=== PATIENT | male | born 1995 | race Caucasian/White ===

== ENCOUNTER 2016-12-30 00:19 | Emergency (ER) | payer BC, OTHER ==
[2016-12-30 00:26] VITALS: TEMP 96.8
[2016-12-30] MEDS ORDERED: SODIUM CHLORIDE 0.9% 1,000 ML IV ONE (01:18)
[2016-12-30 01:27] LABS: Basophils # (A) 0.1 k/uL (0-0.2); Basophils % (A) 1 %; CHCM 33.8; Eosinophils % (A) 0 %; HCT 48.5 % (39.0-53.0); HDW 2.55; Luc # (Auto) 0.09; Luc % (Auto) 1; Lymphocytes # (A) 1.3 k/uL (1.0-4.8); Lymphocytes % (A) 8 %; MCH 29.4 pg (25.0-35.0); MCHC 32.9 g/dL (31.0-37.0); MCV 89.2 fL (80.0-100.0); Mean Platelet Volume 7.3; Monocytes # (A) 0.7 k/uL (0-1.0); Monocytes % (A) 4 %; Neutrophils # (A) 14.6 k/uL (1.3-7.7); Neutrophils % (A) 87 %; RBC 5.44 m/uL (4.30-5.90); RDW 13.4 % (11.5-15.5); WBC 16.8 k/uL (3.8-10.6); WBC (Perox) 16.38
[2016-12-30 01:36] LABS: ALT 41 U/L (21-72); AST 23 U/L (17-59); Alkaline Phosphatase 87 U/L (38-126); Anion Gap 11 mmol/L; Blood Urea Nitrogen 7 mg/dL (9-20); Calcium 9.9 mg/dL (8.4-10.2); Carbon Dioxide 23 mmol/L (22-30); Chloride 107 mmol/L (98-107); Glucose 122 mg/dL (74-99); Magnesium 1.8 mg/dL (1.6-2.3); Non-African American GFR(MDRD) >60 (>60 ml/min/1.73 sqM); Potassium 4.1 mmol/L (3.5-5.1); Sodium 141 mmol/L (137-145); Total Bilirubin 0.7 mg/dL (0.2-1.3); Total Protein 7.3 g/dL (6.3-8.2)
--- NOTE | 2016-12-30 01:39 | ED ---
Nausea/Vomiting/Diarrhea HPI - General Chief complaint: Nausea/Vomiting/Diarrhea Stated complaint: Dizziness/Vomiting Time Seen by Provider: 12/30/16 01:01 Source: patient, RN notes reviewed Mode of arrival: ambulatory Limitations: no limitations - History of Present Illness Initial comments: Patient is a 21-year-old male presents to the emergency room for evaluation of nausea, vomiting and diarrhea. Patient states symptoms began today. Patient states he feels very dizzy after vomiting. Patient denies abdominal pain. Patient denies chest pain or shortness of breath. Patient denies recent travel outside the country. Patient denies sick contacts. Patient denies trying new foods. Patient denies chest pain, shortness of breath. Patient just states he' s been feeling very nauseous and can't get the vomiting to stop. Patient denies any significant past mental history. Patient denies any history of abdominal surgeries. Patient states he's had diarrhea for the past 3 days. Patient denies blood in stools. Patient denies any abnormal discoloration of stools. - Related Data Previous Rx's Medication Instructions Recorded Ibuprofen [Motrin] 600 mg PO Q8HR PRN #20 tab 05/04/15 Ondansetron Odt [Zofran Odt] 4 mg PO Q8HR PRN #12 tab 12/30/16 Allergies Allergy/AdvReac Type Severity Reaction Status Date / Time No Known Allergies Allergy Verified 12/30/16 00:26 Review of Systems ROS Statement: Those systems with pertinent positive or pertinent negative responses have been documented in the HPI. ROS Other: All systems not noted in ROS Statement are negative. Past Medical History Past Medical History: No Reported History History of Any Multi-Drug Resistant Organisms: None Reported Past Surgical History: Orthopedic Surgery Past Psychological History: No Psychological Hx Reported Smoking Status: Current every day smoker Past Alcohol Use History: Rare Past Drug Use History: Marijuana General Exam - General Exam Comments Initial Comments: Sitting in exam room, no acute distress. Limitations: no limitations General appearance: alert, in no apparent distress Head exam: Present: atraumatic, normocephalic, normal inspection Eye exam: Present: normal appearance ENT exam: Present: normal exam Neck exam: Present: normal inspection Respiratory exam: Present: normal lung sounds bilaterally. Absent: respiratory distress Cardiovascular Exam: Present: regular rate, normal rhythm, normal heart sounds GI/Abdominal exam: Present: soft, normal bowel sounds. Absent: distended, tenderness, guarding, rebound, rigid Extremities exam: Present: normal inspection Back exam: Present: normal inspection Neurological exam: Present: alert, oriented X3, CN II-XII intact, normal gait Psychiatric exam: Present: normal affect, normal mood Skin exam: Present: warm, dry, intact, normal color. Absent: rash Course Vital Signs 12/30/16 00:24 Temperature 96.8 F L Pulse Rate 70 Respiratory 20 Rate Blood Pressure 139/77 O2 Sat by Pulse 98 Oximetry Medical Decision Making - Medical Decision Making Patient is a 21-year-old male presents emergency room for impression nausea, vomiting and diarrhea. Patient declined any nausea medication. Patient was given a liter of fluids. Patient states he is feeling much better and like to be discharged home. Will send patient home with Zofran as needed advised patient to drink plenty of fluids. Patient to follow-up with his primary care provider in 24-48 hours for reevaluation. Patient states he understands everything that was discussed with him. Return parameters discussed. Case discussed with Dr. Doherty. - Lab Data Result diagrams: 12/30/16 01:05 12/30/16 01:05 Lab Results 12/30/16 12/30/16 Range/Units 01:05 01:05 WBC 16.8 H (3.8-10.6) k/uL RBC 5.44 (4.30-5.90) m/uL Hgb 16.0 (13.0-17.5) gm/dL Hct 48.5 (39.0-53.0) % MCV 89.2 (80.0-100.0) fL MCH 29.4 (25.0-35.0) pg MCHC 32.9 (31.0-37.0) g/dL RDW 13.4 (11.5-15.5) % Plt Count 252 (150-450) k/uL Neutrophils % 87 % Lymphocytes % 8 % Monocytes % 4 % Eosinophils % 0 % Basophils % 1 % Neutrophils # 14.6 H (1.3-7.7) k/uL Lymphocytes # 1.3 (1.0-4.8) k/uL Monocytes # 0.7 (0-1.0) k/uL Eosinophils # 0.0 (0-0.7) k/uL Basophils # 0.1 (0-0.2) k/uL Sodium 141 (137-145) mmol/L Potassium 4.1 (3.5-5.1) mmol/L Chloride 107 (98-107) mmol/L Carbon Dioxide 23 (22-30) mmol/L Anion Gap 11 mmol/L BUN 7 L (9-20) mg/dL Creatinine 0.60 L (0.66-1.25) mg/dL Est GFR (MDRD) Af Amer >60 (>60 ml/min/1.73 sqM) Est GFR (MDRD) Non-Af >60 (>60 ml/min/1.73 sqM) Glucose 122 H (74-99) mg/dL Calcium 9.9 (8.4-10.2) mg/dL Magnesium 1.8 (1.6-2.3) mg/dL Total Bilirubin 0.7 (0.2-1.3) mg/dL AST 23 (17-59) U/L ALT 41 (21-72) U/L Alkaline Phosphatase 87 (38-126) U/L Total Protein 7.3 (6.3-8.2) g/dL Albumin 4.5 (3.5-5.0) g/dL Disposition Clinical Impression: Nausea vomiting and diarrhea Disposition: HOME SELF-CARE Condition: Good Instructions: Gastroenteritis (ED) Additional Instructions: Drink plenty of fluids. Take Zofran as needed for nausea. Clear liquid diet. Please follow up with primary care provider in 24-48 hours for reevaluation. If any new symptom arises or symptoms worsen, return to ER as soon as possible. Prescriptions: Ondansetron Odt [Zofran Odt] 4 mg PO Q8HR PRN #12 tab PRN Reason: Nausea Referrals: Connor Zheng MD [Primary Care Provider] - 1-2 days Time of Disposition: 02:30
[2016-12-30 02:47] VITALS: BP 111/53; PULSE 62; RESP 16
== END 2016-12-30 02:47 | disposition home or self-care (01) ==
LOC: EC 00:19
DX: R11.2 Nausea with vomiting, unspecified (principal); R19.7 Diarrhea, unspecified; R42 Dizziness and giddiness; F17.200 Nicotine dependence, unspecified, uncomplicated
CPT/HCPCS: 36415; 80053; 83735; 85025; 96360; 99283

== ENCOUNTER 2021-01-02 09:49 | Emergency (ER) | payer BC, OTHER ==
[2021-01-02 09:55] VITALS: PULSE 54
[2021-01-02 10:31] LABS: Basophils % (A) 0 %; Eosinophils % (A) 0 %; HCT 48.1 % (39.0-53.0); Lymphocytes # (A) 1.6 k/uL (1.0-4.8); Lymphocytes % (A) 13 %; MCH 29.3 pg (25.0-35.0); MCHC 33.2 g/dL (31.0-37.0); MCV 88.3 fL (80.0-100.0); Mean Platelet Volume 7.6; Monocytes # (A) 0.6 k/uL (0-1.0); Monocytes % (A) 5 %; Neutrophils # (A) 10.3 k/uL (1.3-7.7); Neutrophils % (A) 81 %; Platelet Count 259 k/uL (150-450); RBC 5.44 m/uL (4.30-5.90); RDW 12.8 % (11.5-15.5); WBC 12.7 k/uL (3.8-10.6)
[2021-01-02] MEDS ORDERED: ONDANSETRON 4 MG/2 ML VIAL IVP STA (10:42)
[2021-01-02] MEDS ORDERED: KETOROLAC 15 MG/ML 1 ML VIAL IVP STA (10:42)
[2021-01-02] MEDS ORDERED: SODIUM CHLORIDE 0.9% 1,000 ML IV ONE (10:43)
[2021-01-02 10:46] LABS: ALT 15 U/L (4-49); AST 20 U/L (17-59); African American GFR (CKD) >90 (>60 ml/min/1.73 sqM); Albumin 4.5 g/dL (3.5-5.0); Alkaline Phosphatase 102 U/L (38-126); Anion Gap 8 mmol/L; Blood Urea Nitrogen 12 mg/dL (9-20); Calcium 10.2 mg/dL (8.4-10.2); Carbon Dioxide 23 mmol/L (22-30); Chloride 108 mmol/L (98-107); Glucose 138 mg/dL (74-99); Lipase 63 U/L (23-300); Non-African American GFR(CKD) >90 (>60 ml/min/1.73 sqM); Potassium 4.1 mmol/L (3.5-5.1); Sodium 139 mmol/L (137-145); Total Bilirubin 0.5 mg/dL (0.2-1.3); Total Protein 7.3 g/dL (6.3-8.2)
--- NOTE | 2021-01-02 12:06 | CT ---
EXAMINATION TYPE: CT abdomen pelvis w con DATE OF EXAM: 01/02/2021 COMPARISON: None HISTORY: Right sided pain with nausea CT DLP: 1408.7 mGycm CONTRAST: CT scan of the abdomen and pelvis is performed without Oral Contrast and with IV Contrast, patient in jected with 100 mL of Isovue 300. FINDINGS: LUNG BASES-: Small pleural effusions left greater than right as well as nodular infiltrate right lowe r lobe linear atelectasis or parenchymal scar at the left lung base. LIVER/GB: No calcified gallstones. No space occupying hepatic lesion. Biliary tree is of normal ca liber. PANCREAS: No inflammation. No distinct mass. SPLEEN: No splenic enlargement. No lesion seen. ADRENALS: No nodule. No thickening. KIDNEYS/BLADDER: No hydronephrosis. No nephrolithiasis. There is a complex mass upper pole left kid breonna posterior cortex measuring 1.8 x 2.4 x 2.9 cm. Malignancy is not excluded. No additional renal le sions are detected. Urinary bladder grossly unremarkable. BOWEL: Normal appendix. Normal bowel caliber. No inflammation. GENITAL ORGANS: No gross abnormality. LYMPH NODES: No greater than 1cm abdominal or pelvic lymph nodes are appreciated. AORTA: No significant abnormality. OSSEOUS STRUCTURES: No significant abnormality is seen. OTHER: No significant additional abnormality is seen. IMPRESSION: 1. Urology consult recommended for complex mass upper pole left kidney. Malignancy is not excluded. 2. No acute intra-abdominal process seen. 3. Small pleural effusions as well as nodular infiltrate right lower lobe areas of linear atelectasis left lung base.
[2021-01-02 12:32] LABS: Appearance,Urine Clear (Clear); Bilirubin,Urine Negative (Negative); Blood,Urine Large (Negative); Color,Urine Light Yellow; Glucose,Urine (UA) Negative (Negative); Ketones,Urine Negative (Negative); Leukocyte Esterase,Urine Negative (Negative); Mucus,Urine Rare /hpf; Nitrite,Urine Negative (Negative); PH, Urine 7.5 (5.0-8.0); Protein,Urine Negative (Negative); RBC,Urine >182 /hpf (0-5); Urobilinogen,Urine <2.0 mg/dL (<2.0); WBC,Urine 2 /hpf (0-5)
[2021-01-02 12:33] LABS: Specific Gravity,Urine >1.050 (1.001-1.035)
--- NOTE | 2021-01-02 13:18 | ED ---
Abdominal Pain HPI - General Chief Complaint: Abdominal Pain Stated Complaint: Abd Pain, Vomiting Source: patient Mode of arrival: ambulatory Limitations: no limitations - History of Present Illness Initial Comments: 25-year-old male who presents emergency department with reported right-sided abdominal pain. Patient states that it started early this morning and awoke him from sleep. Pain starts around his right upper quadrant radiates around to his right back. It is tender to touch. Patient has associated nausea and vomiting. Denies dysuria, hematuria or difficulty voiding. Denies diarrhea, constipation, melenic stools or hematochezia. Denies any chest pain or short ness of breath. No history of similar in the past. No penile discharge. No concern for sexually transmitted infections. No scrotal pain. No previous history of abdominal surgeries. No other alleviating, precipitating or modifying factors - Related Data Home Medications Medication Instructions Recorded Confirmed No Known Home Medications 01/02/21 01/02/21 Allergies Allergy/AdvReac Type Severity Reaction Status Date / Time No Known Allergies Allergy Verified 01/02/21 10:26 Review of Systems ROS Statement: Those systems with pertinent positive or pertinent negative responses have been documented in the HPI. ROS Other: All systems not noted in ROS Statement are negative. Past Medical History Past Medical History: No Reported History History of Any Multi-Drug Resistant Organisms: None Reported Past Surgical History: Orthopedic Surgery Past Psychological History: No Psychological Hx Reported Smoking Status: Current every day smoker Past Alcohol Use History: Rare Past Drug Use History: Marijuana General Exam Limitations: no limitations Course Vital Signs 01/02/21 01/02/21 09:51 13:41 Temperature 97.6 F 98 F Pulse Rate 54 L 54 L Respiratory 18 16 Rate Blood Pressure 145/82 113/68 O2 Sat by Pulse 100 98 Oximetry - Reevaluation(s) Reevaluation #1: 01/02/21 13:[address] Neville. Patient admits to follow-up in the office. Medical Decision Making - Medical Decision Making Upon arrival patient's placed into room 15. Thorough history and physical exam was performed. he was established. Patient was given a dose of Toradol and Zofran for his pain and nausea. Laboratory studies were conducted. Urinalysis does demonstrate greater than [address] demonstrates complex mass upper pole left kidney. Spoke with Dr. Neville in guarded stiffness. States the patient can follow up in office. These results are discussed the patient and the importance of him following up in Dr. Dye's office. He does understand this. He is take Motrin and Tylenol alternating for his pain. Return to the emergency room for any worsening symptoms. Patient is discharged in stable condition. - Lab Data Result diagrams: 01/02/21 10:13 01/02/21 10:13 Lab Results 01/02/21 01/02/21 01/02/21 Range/Units 10:13 10:13 10:13 WBC 12.7 H (3.8-10.6) k/uL RBC 5.44 (4.30-5.90) m/uL Hgb 16.0 (13.0-17.5) gm/dL Hct 48.1 (39.0-53.0) % MCV 88.3 (80.0-100.0) fL MCH 29.3 (25.0-35.0) pg MCHC 33.2 (31.0-37.0) g/dL RDW 12.8 (11.5-15.5) % Plt Count 259 (150-450) k/uL MPV 7.6 Neutrophils % 81 % Lymphocytes % 13 % Monocytes % 5 % Eosinophils % 0 % Basophils % 0 % Neutrophils # 10.3 H (1.3-7.7) k/uL Lymphocytes # 1.6 (1.0-4.8) k/uL Monocytes # 0.6 (0-1.0) k/uL Eosinophils # 0.0 (0-0.7) k/uL Basophils # 0.0 (0-0.2) k/uL Sodium 139 (137-145) mmol/L Potassium 4.1 (3.5-5.1) mmol/L Chloride 108 H (98-107) mmol/L Carbon Dioxide 23 (22-30) mmol/L Anion Gap 8 mmol/L BUN 12 (9-20) mg/dL Creatinine 0.82 (0.66-1.25) mg/dL Est GFR (CKD-EPI)AfAm >90 (>60 ml/min/1.73 sqM) Est GFR (CKD-EPI)NonAf >90 (>60 ml/min/1.73 sqM) Glucose 138 H (74-99) mg/dL Plasma Lactic Acid Ari 1.6 (0.7-2.0) mmol/L Calcium 10.2 (8.4-10.2) mg/dL Total Bilirubin 0.5 (0.2-1.3) mg/dL AST 20 (17-59) U/L ALT 15 (4-49) U/L Alkaline Phosphatase 102 (38-126) U/L Total Protein 7.3 (6.3-8.2) g/dL Albumin 4.5 (3.5-5.0) g/dL Lipase 63 (23-300) U/L Urine Color Urine Appearance (Clear) Urine pH (5.0-8.0) Ur Specific [place] (1.001-1.035) Urine Protein (Negative) Urine Glucose (UA) (Negative) Urine Ketones (Negative) Urine Blood (Negative) Urine Nitrite (Negative) Urine Bilirubin (Negative) Urine Urobilinogen (<2.0) mg/dL Ur Leukocyte Esterase (Negative) Urine RBC (0-5) /hpf Urine WBC (0-5) /hpf Urine Mucus (None) /hpf 01/02/21 Range/Units 12:09 WBC (3.8-10.6) k/uL RBC (4.30-5.90) m/uL Hgb (13.0-17.5) gm/dL Hct (39.0-53.0) % MCV (80.0-100.0) fL MCH (25.0-35.0) pg MCHC (31.0-37.0) g/dL RDW (11.5-15.5) % Plt Count (150-450) k/uL MPV Neutrophils % % Lymphocytes % % Monocytes % % Eosinophils % % Basophils % % Neutrophils # (1.3-7.7) k/uL Lymphocytes # (1.0-4.8) k/uL Monocytes # (0-1.0) k/uL Eosinophils # (0-0.7) k/uL Basophils # (0-0.2) k/uL Sodium (137-145) mmol/L Potassium (3.5-5.1) mmol/L Chloride (98-107) mmol/L Carbon Dioxide (22-30) mmol/L Anion Gap mmol/L BUN (9-20) mg/dL Creatinine (0.66-1.25) mg/dL Est GFR (CKD-EPI)AfAm (>60 ml/min/1.73 sqM) Est GFR (CKD-EPI)NonAf (>60 ml/min/1.73 sqM) Glucose (74-99) mg/dL Plasma Lactic Acid Ari (0.7-2.0) mmol/L Calcium (8.4-10.2) mg/dL Total Bilirubin (0.2-1.3) mg/dL AST (17-59) U/L ALT (4-49) U/L Alkaline Phosphatase (38-126) U/L Total Protein (6.3-8.2) g/dL Albumin (3.5-5.0) g/dL Lipase (23-300) U/L Urine Color Light Yellow Urine Appearance Clear (Clear) Urine pH 7.5 (5.0-8.0) Ur Specific [place] >1.050 H (1.001-1.035) Urine Protein Negative (Negative) Urine Glucose (UA) Negative (Negative) Urine Ketones Negative (Negative) Urine Blood Large H (Negative) Urine Nitrite Negative (Negative) Urine Bilirubin Negative (Negative) Urine Urobilinogen <2.0 (<2.0) mg/dL Ur Leukocyte Esterase Negative (Negative) Urine RBC >182 H (0-5) /hpf Urine WBC 2 (0-5) /hpf Urine Mucus Rare H (None) /hpf Disposition Clinical Impression: Right flank pain, Hematuria, Left kidney mass Disposition: HOME SELF-CARE Condition: Stable Instructions (If sedation given, give patient instructions): Flank Pain (ED) Additional Instructions: You have a mass on your left kidney. you need further workup to determine what this mass is. Please call and make an appointment with the urologist. Alternate taking Motrin and Tylenol for pain control. Return to the ED for any new or worsening symptoms. Is patient prescribed a controlled substance at d/c from ED?: No Referrals: Connor Zheng MD [Primary Care Provider] - 1-2 days Pablo Neville MD [STAFF PHYSICIAN] - 1-2 days Time of Disposition: 13:35
[2021-01-02 13:42] VITALS: BP 113/68; RESP 16; TEMP 98
== END 2021-01-02 13:41 | disposition home or self-care (01) ==
LOC: EC 09:49
DX: N28.89 Other specified disorders of kidney and ureter (principal); F17.200 Nicotine dependence, unspecified, uncomplicated
CPT/HCPCS: 36415; 74177; 80053; 81003; 83605; 83690; 85025; 96374; 96375; 99284

== ENCOUNTER 2022-05-30 03:05 | Emergency (ER) | payer OTHER ==
[2022-05-30 03:26] VITALS: BP 124/78; PULSE 60; RESP 15; TEMP 97.8
[2022-05-30 04:29] LABS: Basophils # (A) 0.1 k/uL (0-0.2); Basophils % (A) 0 %; Eosinophils # (A) 0.1 k/uL (0-0.7); Eosinophils % (A) 1 %; HCT 51.2 % (39.0-53.0); HGB 16.2 gm/dL (13.0-17.5); Lymphocytes # (A) 1.6 k/uL (1.0-4.8); Lymphocytes % (A) 12 %; MCH 28.9 pg (25.0-35.0); MCHC 31.6 g/dL (31.0-37.0); MCV 91.5 fL (80.0-100.0); Mean Platelet Volume 7.7; Monocytes # (A) 0.6 k/uL (0-1.0); Monocytes % (A) 5 %; Neutrophils % (A) 82 %; Platelet Count 257 k/uL (150-450); WBC 13.4 k/uL (3.8-10.6)
--- NOTE | 2022-05-30 04:32 | CT ---
EXAMINATION TYPE: CT abdomen pelvis wo con DATE OF EXAM: 05/30/2022 COMPARISON: 01/02/2021 HISTORY: possible kidney stone CT DLP: 673.9 mGycm Automated exposure control for dose reduction was used. Images obtained from the diaphragm to the floor of the pelvis with no contrast. There is some mild pleural thickening at the posterior lung bases. Heart size is normal. No pericardi al effusion. There is some linear patchy density at the lung bases consistent with scarring and atelectasis. Liver and spleen are intact. Stomach is intact. No pancreatic mass. Gallbladder is intact. There is no adrenal mass. Kidneys have normal size. There is a 2.5 cm mass in the posterior upper aashish e left kidney. This is not changed in size compared to old CT scan. There are scattered low density c alculi in both kidneys. There is some fullness of the right renal pelvis and right ureter. There appe ars to be a calculus at the right ureterovesical junction measuring 4 mm. Bladder distends smoothly. No sign of obstruction on the left side. Left ureter not dilated. No retroperitoneal adenopathy. Appe ndix is inferior and appears normal. There is no mesenteric edema. No ascites or free air. No sign of a bowel obstruction. The lumbar vertebra have normal alignment. No compression fracture. There is developmentally small sp inal canal and multilevel spinal stenosis from L3 to S1. IMPRESSION: Obstructing calculus at the right ureterovesical junction. Multiple low density renal calculi. Mild r ight-sided hydronephrosis and hydroureter. Rounded mass posterior upper pole left kidney not changed in size. Normal appendix. Multilevel lumbar spinal stenosis.
[2022-05-30 05:02] LABS: ALT 16 U/L (4-49); AST 23 U/L (17-59); African American GFR (CKD) >90 (>60 ml/min/1.73 sqM); Albumin 4.4 g/dL (3.5-5.0); Alkaline Phosphatase 100 U/L (38-126); Amylase 54 U/L (30-110); Anion Gap 14 mmol/L; Blood Urea Nitrogen 10 mg/dL (9-20); Calcium 9.6 mg/dL (8.4-10.2); Carbon Dioxide 19 mmol/L (22-30); Chloride 104 mmol/L (98-107); Glucose 135 mg/dL (74-99); Lipase 95 U/L (23-300); Non-African American GFR(CKD) >90 (>60 ml/min/1.73 sqM); Potassium 4.4 mmol/L (3.5-5.1); Sodium 137 mmol/L (137-145); Total Bilirubin 0.6 mg/dL (0.2-1.3)
[2022-05-30 05:10] LABS: Appearance,Urine Turbid (Clear); Bilirubin,Urine Negative (Negative); Blood,Urine Large (Negative); Color,Urine Dark Brown; Glucose,Urine (UA) Negative (Negative); Ketones,Urine Trace (Negative); Leukocyte Esterase,Urine Small (Negative); Mucus,Urine Many /hpf; Nitrite,Urine Negative (Negative); PH, Urine 5.5 (5.0-8.0); Protein,Urine 2+ (Negative); RBC,Urine >182 /hpf (0-5); WBC,Urine 9 /hpf (0-5)
[2022-05-30] MEDS ORDERED: HYDROmorphone 0.5 MG/0.5 ML SYRINGE IVP STA (06:29)
[2022-05-30] MEDS ORDERED: ONDANSETRON 4 MG/2 ML VIAL IVP STA (06:29)
[2022-05-30] MEDS ORDERED: SODIUM CHLORIDE 0.9% 1,000 ML IV STA (06:29)
[2022-05-30] MEDS ORDERED: cefTRIAXone IN SWFI 1,000 MG/10 ML SYRINGE IVP STA (06:29)
[2022-05-30] MEDS ORDERED: TAMSULOSIN 0.4 MG CAP.ER.24H PO STA (06:58)
--- NOTE | 2022-05-30 07:01 | ED ---
Abdominal Pain HPI - General Chief Complaint: Abdominal Pain Stated Complaint: right side pain Time Seen by Provider: 05/30/22 05:59 Source: patient, family, RN notes reviewed Mode of arrival: ambulatory - History of Present Illness Initial Comments: This is a 27-year-old male who presents to the emergency department for right flank pain and hematuria. Patient has a history of kidney stones, most recently 1.5 years ago. This required treatment with a lithotripsy due to the size. Symptoms have been present since yesterday. He has associated RLQ pain, nausea, and vomiting. Denies any fevers, chills, sore throat, cough, dyspnea, chest pain, palpitations, diarrhea, or headaches. MD Complaint: abdominal pain Onset/Timin -: days(s) Location: R flank Associated Symptoms: hematuria - Related Data Previous Rx's Medication Instructions Recorded Cephalexin [Keflex] 500 mg PO Q12HR 7 Days #14 cap 05/30/22 HYDROcodone/APAP 5-325MG [[place] 1 tab PO Q6HR PRN 3 Days #12 tab 05/30/22 5-325] Ondansetron Odt [Zofran Odt] 4 mg PO Q8HR PRN #20 tab 05/30/22 Tamsulosin [Flomax] 0.4 mg PO DAILY #7 cap 05/30/22 Allergies Allergy/AdvReac Type Severity Reaction Status Date / Time No Known Allergies Allergy Verified 05/30/22 03:19 Review of Systems ROS Statement: Those systems with pertinent positive or pertinent negative responses have been documented in the HPI. ROS Other: All systems not noted in ROS Statement are negative. Past Medical History Past Medical History: No Reported History History of Any Multi-Drug Resistant Organisms: None Reported Past Surgical History: Orthopedic Surgery Past Psychological History: No Psychological Hx Reported Smoking Status: Current every day smoker Past Alcohol Use History: Rare Past Drug Use History: Marijuana General Exam General appearance: alert, in distress Head exam: Present: atraumatic, normocephalic, normal inspection Respiratory exam: Present: normal lung sounds bilaterally. Absent: respiratory distress, wheezes, rales, rhonchi, stridor Cardiovascular Exam: Present: regular rate, normal rhythm, normal heart sounds. Absent: systolic murmur, diastolic murmur, rubs, gallop, clicks GI/Abdominal exam: Present: soft, tenderness (RLQ), normal bowel sounds. Absent: distended, guarding, rebound, rigid Back exam: Present: CVA tenderness (R) Neurological exam: Present: alert, oriented X3, CN II-XII intact Psychiatric exam: Present: normal affect, normal mood Skin exam: Present: warm, dry, intact, normal color. Absent: rash Course Vital Signs 05/30/22 03:19 Temperature 97.8 F Pulse Rate 60 Respiratory 15 Rate Blood Pressure 124/78 O2 Sat by Pulse 98 Oximetry Medical Decision Making - Medical Decision Making This is a 27-year-old male who presents to the emergency department for right flank pain and hematuria. CBC reveals leukocytosis and urinalysis reveals hematuria. Computed tomography scan of the abdomen and pelvis obtained revealing an obstructing 4mm renal calculus at the right UVJ with mild hydronephrosis. Patient's symptoms were managed in the emergency department. Rx for [place], Zofran, Keflex, and Flomax provided. He is advised to take ibuprofen and Tylenol as needed for his pain and to use the [place] sparingly when the symptoms are the most severe. The Keflex will be taken for 7 days, the Flomax until his pain resolves or he notices that he passes the kidney stone. Zofran taken up to every 8 hours needed for nausea and vomiting. Advised to remain well-hydrated. Information for urology follow-up was provided, instructed him to make an appointment. Return precautions reviewed in depth, the patient is instructed to return to the emergency department with any new, worsening, or concerning symptoms. Patient verbalized understanding. This case was discussed in detail with the attending ED physician. Presentation, findings, and treatment plan discussed in detail as well. - Lab Data Result diagrams: 05/30/22 04:19 05/30/22 04:19 Lab Results 05/30/22 05/30/22 05/30/22 Range/Units 04:19 04:19 04:37 WBC 13.4 H (3.8-10.6) k/uL RBC 5.60 (4.30-5.90) m/uL Hgb 16.2 (13.0-17.5) gm/dL Hct 51.2 (39.0-53.0) % MCV 91.5 (80.0-100.0) fL MCH 28.9 (25.0-35.0) pg MCHC 31.6 (31.0-37.0) g/dL RDW 13.0 (11.5-15.5) % Plt Count 257 (150-450) k/uL MPV 7.7 Neutrophils % 82 % Lymphocytes % 12 % Monocytes % 5 % Eosinophils % 1 % Basophils % 0 % Neutrophils # 11.0 H (1.3-7.7) k/uL Lymphocytes # 1.6 (1.0-4.8) k/uL Monocytes # 0.6 (0-1.0) k/uL Eosinophils # 0.1 (0-0.7) k/uL Basophils # 0.1 (0-0.2) k/uL Sodium 137 (137-145) mmol/L Potassium 4.4 (3.5-5.1) mmol/L Chloride 104 (98-107) mmol/L Carbon Dioxide 19 L (22-30) mmol/L Anion Gap 14 mmol/L BUN 10 (9-20) mg/dL Creatinine 0.72 (0.66-1.25) mg/dL Est GFR (CKD-EPI)AfAm >90 (>60 ml/min/1.73 sqM) Est GFR (CKD-EPI)NonAf >90 (>60 ml/min/1.73 sqM) Glucose 135 H (74-99) mg/dL Calcium 9.6 (8.4-10.2) mg/dL Total Bilirubin 0.6 (0.2-1.3) mg/dL AST 23 (17-59) U/L ALT 16 (4-49) U/L Alkaline Phosphatase 100 (38-126) U/L Total Protein 7.0 (6.3-8.2) g/dL Albumin 4.4 (3.5-5.0) g/dL Amylase 54 (30-110) U/L Lipase 95 (23-300) U/L Urine Color Dark Brown Urine Appearance Turbid (Clear) Urine pH 5.5 (5.0-8.0) Ur Specific [place] 1.030 (1.001-1.035) Urine Protein 2+ H (Negative) Urine Glucose (UA) Negative (Negative) Urine Ketones Trace H (Negative) Urine Blood Large H (Negative) Urine Nitrite Negative (Negative) Urine Bilirubin Negative (Negative) Urine Urobilinogen 2.0 (<2.0) mg/dL Ur Leukocyte Esterase Small H (Negative) Urine RBC >182 H (0-5) /hpf Urine WBC 9 H (0-5) /hpf Urine Mucus Many H (None) /hpf - Radiology Data Radiology results: report reviewed, image reviewed Disposition Clinical Impression: Renal calculus, right Disposition: HOME SELF-CARE Instructions (If sedation given, give patient instructions): Kidney Stones (ED), Renal Colic (ED) Additional Instructions: Return to the emergency department with any new, worsening, or concerning symptoms. Alternate with ibuprofen and Tylenol as needed for pain relief. Take the [place] sparingly when your pain is the most severe. Take the Zofran up to every 8 hours as needed for nausea and vomiting. Take the Flomax daily until your pain resolves or you notice that you passed a kidney stone. Take the antibiotic as prescribed for 7 days. Contact urology for a follow-up appointment. Prescriptions: Tamsulosin [Flomax] 0.4 mg PO DAILY #7 cap Cephalexin [Keflex] 500 mg PO Q12HR 7 Days #14 cap HYDROcodone/APAP 5-325MG [[place] 5-325] 1 tab PO Q6HR PRN 3 Days #12 tab PRN Reason: Pain Ondansetron Odt [Zofran Odt] 4 mg PO Q8HR PRN #20 tab PRN Reason: Nausea And Vomiting Is patient prescribed a controlled substance at d/c from ED?: Yes When asked, does pt state using other controlled substances?: No If prescribed controlled substance>3 days was MAPS reviewed?: Prescribed <3 Days Referrals: Connor Zheng MD [Primary Care Provider] - 1-2 days Min East MD [STAFF PHYSICIAN] - 1-2 days
== END 2022-05-30 09:11 | disposition home or self-care (01) ==
LOC: EC 03:05
DX: N13.2 Hydronephrosis with renal and ureteral calculous obstruction (principal); F17.200 Nicotine dependence, unspecified, uncomplicated
CPT/HCPCS: 99284; 96374; 96375; 96361; 36415; 80053; 82150; 83690; 85025; 81001; 74176; J2405; J0696; J1170